=== PATIENT | male | born 2000 | race Caucasian/White ===

== ENCOUNTER 2025-05-09 19:36 | Emergency (ER) | payer BC, SELFPAY ==
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
[2025-05-09 19:42] VITALS: BP 90/63; PULSE 78; RESP 20; TEMP 36.2
--- OUTSIDE RECORDS SUMMARY | 2025-05-09 20:14 | XMS_ITS | Clinical Summary ---
Author Organization [facility] Address [address] [place] [id number] Care Team Providers Care Store Team Leader Name Role Phone Ryan Lee MD Primary Care Provider [phone] Social History Tobacco Use Types Packs/Day Years Used Date Smoking Tobacco: Never Assessed Sex and Gender Information Value Date Recorded Sex Assigned at Not on file Legal Sex Male 6:22 PM CDT Gender Identity Not on file Sexual Orientation Not on file Last Filed Vital Signs Vital Sign Reading Time Taken Comments Blood Pressure - - Pulse - - Temperature - - Respiratory Rate - - Oxygen Saturation - - Inhaled Oxygen Concentration - - Weight 73.5 kg (161 lb 15.9 oz) 02/14/2017 9:13 AM CDT Height 174 cm (5' 8.5) 02/14/2017 9:13 AM CDT Body Mass Index 24.27 02/14/2017 9:13 AM CDT Plan of Treatment Health Maintenance Due Date Last Done Comments Annual Physical 2004 HPV Vaccines (1 - Male 3-dos e series) 2016 Meningococcal B Vaccine (1 o f 2 - Standard) 2017 Hepatitis C 2019 DTaP, Tdap and Td Vaccines ( 1 - Tdap) 2020 Hepatitis B Vaccines (1 of 3 - 19+ 3-dose series) 2020 COVID-19 Vaccine ( - 2023-2 5 season) 2024 Meningococcal Vaccine Aged Out No barbie porfirio eligible based on patient's age to complete this topic Pneumococcal Vaccine: Pediat rics (0 to 5 Years) and At-Risk Patients (6 to 49 Years) Aged Out No longer eligible b ased on patient's age to complete this topic RSV Immunizations Under 20 Months Aged Out No longer eligible based on patient's age to complete this topic Insurance [facility] Care Teams Store Team Leader Relationship Specialty Start Date End Date Ryan Lee MD [address] [place] [address] PCP - General FAMILY PRACTICE 08/01/23
--- OUTSIDE RECORDS SUMMARY | 2025-05-09 20:14 | XMS_ITS | Clinical Summary ---
Author Organization [facility] Address [address] [place] [id number] Care Team Providers Care Photographic Lithographer Name Role Phone Ryan Lee MD Primary Care Provide r Allergies No known active allergies Medications No known medications Active Problems No known active problems Medical History Medical History Date Comments ADD (attention deficit disorder) Anxiety Social History Tobacco Use Types Packs/Day Years Used Date Smoking Tobacco: Some Days Cigarettes Tobacco Cessation:Ready to Q uit: Not Asked; Counseling Given: Not Answered Comments:occassional Personal Safety Answer Date Recorded Getting School Help Needed Not on file 09/11 Sex and Gender Information Value Date Recorded Sex Assigned at Not on file 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 Gender Identity Not on file Sexual Orientation Not on file Obstetrics History Last Filed Vital Signs Vital Sign Reading Time Taken Comments Blood Pressure - - Pulse - - Temperature - - Respiratory Rate - - Oxygen Saturation - - Inhaled Oxygen Concentration - - Weight 75 kg (165 lb 6.4 oz) 09/12/2023 1:46 PM CREW LEADER/CONTROL ROOM OPERATOR Height 179.1 cm (5' 10.5) 09/12/2023 1:46 PM CS T Body Mass Index 23.4 09/12/2023 1:46 PM CREW LEADER/CONTROL ROOM OPERATOR Plan of Treatment Health Maintenance Due Date Last Done Comments Depression Screening 2001 Hepatitis C Screening 2001 DTaP/Tdap/Td Vaccine (1 - Tdap) 2012 Varicella Vaccines (1 of 2 - 13+ 2-dose series) 2013 HPV Vaccines (1 - Male 3-dose series) 2016 Meningococcal B Vaccine (1 of 2 - Standard) 2017 Hepatitis B Screening 2019 Regular Well Visit/Exam 18-64 2019 Pneumococcal vaccine <65 (1 of 2 - PCV) 2020 Influenza Vaccine (#1) [address] [facility] Address: [address] [address] [place] [address] [facility] Address: [address] [address] [place] [address] Care Teams Photographic Lithographer Relationship Specialty Start Date End Date Ryan Lee MD [address] [place] [address] PCP - General Family Medicine 08/03/23
[2025-05-09] MEDS: ACETAMINOPHEN 500 MG TABLET 1000 MG PO (21:14)
[2025-05-09 21:32] VITALS: BP 109/79; PULSE 84; RESP 18; TEMP 36.6; O2SAT 98
== END 2025-05-09 21:32 | disposition home or self-care (01) ==
PROVIDERS: Emergency Provider Emergency Medicine; PCP Family Medicine
DX: S91.112A Laceration without foreign body of left great toe without damage to nail, initial encounter (principal); S90.32XA Contusion of left foot, initial encounter; V01.90XA Pedestrian on foot injured in collision with pedal cycle, unspecified whether traffic or nontraffic accident, initial encounter
CPT/HCPCS: 12001; 73630; 99283; A9270